=== PATIENT | male | born 1975 | race Caucasian/White ===

== ENCOUNTER → 2024-09-24 06:16 | Day surgery (SDC) | payer OTHER, SELFPAY ==
[2024-09-24 09:53] LABS: Glucose - Point of Care 194 mg/dl (70-99)
== END ==
LOC: GI 06:16
PROVIDERS: ATTENDING PHYSICIAN Internal Medicine Gastroenterology
DX: Z12.11 Encounter for screening for malignant neoplasm of colon (principal); K64.8 Other hemorrhoids; K57.30 Diverticulosis of large intestine without perforation or abscess without bleeding; D12.5 Benign neoplasm of sigmoid colon; D12.4 Benign neoplasm of descending colon
CPT/HCPCS: 45385; 88305; 82962